=== PATIENT | female | born 2005 | race Caucasian/White ===

== ENCOUNTER 2024-01-06 01:42 | Emergency (ER) | payer BC, SELFPAY ==
[2024-01-06 01:46] VITALS: BP 100/64; BP 102/61; PULSE 58; PULSE 74; RESP 17; TEMP 36.7; O2SAT 99; BMI 19.5
--- NOTE | 2024-01-06 02:02 | PC.NURSE ---
pt blayne from [facility], a&ox3 at this time. pt reports she has had 4 etoh beverages as well as 3 bong rips . pt reports she has not felt like this before after drinking. pt reporting nausea and had 1 episode of vomiting at this time. pt able to manage own air way and secretions. pt changed into hospital gown. pt placed on bedside monitor, normal sinus 60-65bpm.
--- NOTE | 2024-01-06 02:33 | ED_ITS ---
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 She was drinking alcohol with friends and also used a bong for marijuana. She became quite intoxicated. An ambulance was called and she was brought to the hospital. There is no report of any assault or injury. Related Data Allergies Allergy/AdvReac Type Severity Reaction Status Date / Time No Known Allergies Allergy Verified 01/06/24 02:01 Review of Systems 2 Review of Systems: Yes all other systems are reviewed and are negative [facility] Social History Social History Alcohol intake: current Smoked in Last 30 Days: No Use of substances other than those prescribed or required for medical reasons: Yes Substance Use Type: Marijuana Advance Directives: No Do you have a plan to hurt others: No Plan Patient : No Physical Exam ED Vital Signs: Vital Signs - 24 hr 01/06/24 01:46 01/06/24 06:00 Temperature 98.1 F 97.5 F Pulse Rate 58 84 Respiratory Rate 17 13 Blood Pressure 102/61 107/50 L Pulse Oximetry 99 99 Oxygen Delivery Method Room Air Room Air BMI result Body Mass Index 19.5 Const Other: The patient was initially quite obtunded. Later she was awake and alert. HENMT Other: Face is symmetrical. Mucous membranes moist. Airway clear. Eyes General: appearance normal, both eyes and all related structures Eyelids: Yes eyelids normal Conjunctivae: conjunctivae normal Neck Neck: Yes supple Resp Effort & Inspection: normal respiratory effort Auscultation: clear to auscultation bilaterally Cardio Rate: regular rate Rhythm: regular rhythm Heart sounds: S1 normal heart sound present and S2 normal heart sound present GI Other: Abdomen is soft and nontender Skin Other: Skin is pale and dry Neuro Other: The patient was initially asleep almost to the point of obtundation. However she seemed to be protecting her airway. Later she was awake and alert with a normal mental status. Cranial nerves were intact with normal speech. She moves all extremities normally and appropriately. Extrem Other: No signs of trauma to the extremities. No peripheral edema. Medical Decision Making Medical Decision Making [facility] Narrative: The patient is a [employer] student who was visiting a friend at [facility]. She was drinking some alcohol and using marijuana with the bone. She became overcome by the alcohol and marijuana in an ambulance was called and she was brought here. She was profoundly asleep initially. She was observed. Labs were done which were unremarkable. Her ETOH level was 125. Eventually she was spontaneously awake and seems neurologically intact. I think she may be discharged to return to campus. Lab Data 01/06/24 02:44 Labs: Lab Results 01/06/24 Range/Units 02:44 Sodium 139 (135-145) mmol/L Potassium 3.3 (3.3-5.1) mmol/L Chloride 106 (96-108) mmol/L Carbon Dioxide 24 (22-29) mmol/L Anion Gap 12 (12-20) BUN 13 (9-16) mg/dL Creatinine 0.83 (0.5-1.4) mg/dL Estim Creat Clear Calc 77.9 Estimated GFR > 60 Random Glucose 145 H (60-115) mg/dL Calcium 9.2 (8.4-10.2) mg/dL Beta HCG, Quant < 2 mIU/mL Ethyl Alcohol 125 mg/dL Discharge Plan Discharge Clinical Impression: Intoxication with cannabis, Alcoholic intoxication Patient Disposition: Home, Self-Care Additional Instructions: Please be careful with alcohol and marijuana in the future. Rest and take it easy today. Drink lot of water. Follow up with the [facility] if you have any ongoing concerns. Interventions: ED Discharge Assessment Last Done: 01/06/24 06:48 Print Language: Mongolian
[2024-01-06 03:09] LABS: Anion Gap 12 (12-20); Blood Urea Nitrogen 13 mg/dL (9-16); Calcium 9.2 mg/dL (8.4-10.2); Carbon Dioxide 24 mmol/L (22-29); Chloride 106 mmol/L (96-108); Creatinine Clr Calc Pharmacy 77.9; Estimated Glomerular Filt Rate > 60; Ethanol 125 mg/dL; Glucose Random 145 mg/dL (60-115); Potassium 3.3 mmol/L (3.3-5.1); Sodium 139 mmol/L (135-145)
[2024-01-06 03:20] LABS: HCG Quantitative < 2 mIU/mL
[2024-01-06 06:00] VITALS: BP 107/50; PULSE 84; RESP 13; TEMP 36.4; O2SAT 99
--- NOTE | 2024-01-06 06:19 | PC.NURSE ---
pt continues to rest in stretcher, no acute distress noted. vss.
--- NOTE | 2024-01-06 06:33 | PC.NURSE ---
pt ambulatory to bathroom with steady gait, pt reports she is going to get an uber back to school.
[2024-01-06 06:48] VITALS: BP 107/50; PULSE 84; RESP 13; TEMP 36.4; O2SAT 99
== END 2024-01-06 06:50 | disposition home or self-care (01) ==
PROVIDERS: Emergency Provider Emergency Medicine
DX: F12.929 Cannabis use, unspecified with intoxication, unspecified (principal); F10.129 Alcohol abuse with intoxication, unspecified; R10.2 Pelvic and perineal pain; Y90.6 Blood alcohol level of 120-199 mg/100 ml; Z51.81 Encounter for therapeutic drug level monitoring
CPT/HCPCS: 36415; 80048; 80307; 84702; 99284